=== PATIENT | female | born 1950 | race Caucasian/White ===

== ENCOUNTER 2020-12-20 15:04 | Outpatient (CLI) | payer MEDICARE, OTHER ==
[2020-12-20 16:42] LABS: ALANINE AMINOTRANSFERASE 30 U/L (12-78); ALBUMIN 3.6 g/dL (3.4-5.0); ANION GAP 10 mmol/L (5-15); BASOPHILS % (AUTO) 2 % (0-1); CALCIUM 8.6 mg/dL (8.5-10.1); CHLORIDE 108 mmol/L (98-107); CREATININE 3.96 mg/dL (0.55-1.02); EOSINOPHILS % (AUTO) 4 % (1-7); LYMPHOCYTES % (AUTO) 39 % (22-44); MEAN CORPUSCULAR HEMOGLOBIN 31.4 pg (27.0-34.8); MEAN CORPUSCULAR HGB CONC 33.5 g/dL (32.4-35.8); MEAN PLATELET VOLUME 7.1 fL (7.4-10.4); MONOCYTES % (AUTO) 9 % (2-9); NEUTROPHILS % (AUTO) 47 % (42-75); PLATELET COUNT 283 x10^3/uL (130-400); RED BLOOD COUNT 3.02 x10^6/uL (3.82-5.3); RED CELL DISTRIBUTION WIDTH 14.4 % (9.6-15.2)
[2020-12-20 16:43] LABS: INTERNATIONAL NORMALIZED RATIO 1.02 (0.93-1.1); MD NO; PROTHROMBIN TIME 10.9 Seconds (9.6-11.5)
[2020-12-20 16:44] LABS: ALKALINE PHOSPHATASE 105 U/L (45-117); BILIRUBIN,TOTAL 0.3 mg/dL (0.2-1.0); TOTAL PROTEIN 7.1 g/dL (6.4-8.2)
[2020-12-21] MEDS ORDERED: [UNRECOGNIZED DRUG - CODE] PO (13:38)
[2020-12-21] MEDS ORDERED: SIMV40TA20 PO (13:38)
[2020-12-21] MEDS ORDERED: AMLO-211 PO (13:38)
[2020-12-21] MEDS ORDERED: INSU100V8 SQ (13:38)
[2020-12-21] MEDS ORDERED: SENN8.6T12 PO (13:38)
[2020-12-21] MEDS ORDERED: VITA1TAB67 PO (13:38)
[2020-12-21] MEDS ORDERED: LOSA50TA14 PO (13:38)
[2020-12-21] MEDS ORDERED: GUAN1TAB PO (13:38)
[2020-12-21] MEDS ORDERED: UBID1CAP43 PO (13:38)
[2020-12-21] MEDS ORDERED: EZET10TA70 PO (13:38)
[2020-12-21] MEDS ORDERED: CALC-451 PO (13:38)
[2020-12-21] MEDS ORDERED: L.AC1CAP6 PO (13:38)
[2020-12-21] MEDS ORDERED: ALPR0.5T7 PO (13:38)
[2020-12-21] MEDS ORDERED: NITR0.6T SL (13:38)
[2020-12-21] MEDS ORDERED: CYAN500011 PO (13:38)
[2020-12-21] MEDS ORDERED: MAGN400T36 PO (13:38)
[2020-12-21] MEDS ORDERED: CRAN1CAP12 PO (13:38)
[2020-12-21] MEDS ORDERED: ASPI81TA45 PO (13:38)
[2020-12-21] MEDS ORDERED: SODI650T PO (13:38)
[2020-12-21] MEDS ORDERED: TORS10TA4 PO (13:38)
[2020-12-21] MEDS ORDERED: CYCL5TAB PO (13:38)
[2020-12-21] MEDS ORDERED: GABA-826 PO (13:38)
[2020-12-21] MEDS ORDERED: CALC0.25 PO (13:38)
== END 2020-12-20 23:59 | disposition home or self-care (01) ==
LOC: STAR 15:04
PROVIDERS: ATTEND Surgery
DX: Z01.812 Encounter for preprocedural laboratory examination (principal); Z20.822 Contact with and (suspected) exposure to COVID-19; N18.9 Chronic kidney disease, unspecified; R00.1 Bradycardia, unspecified; I25.2 Old myocardial infarction
CPT/HCPCS: 36415; 80053; 85025; 85610; 85730; 93005; U0003

== ENCOUNTER 2020-12-25 12:53 | Day surgery (SDC) | payer MEDICARE, OTHER ==
[~2020-12-25] VITALS: Ht 147.3 cm; Wt 59.7 kg
[~2020-12-25 12:53] MED LIST: ALPR0.5T7 PO; AMLO-211 PO; ASPI81TA45 PO; CALC-451 PO; CALC0.25 PO; CRAN1CAP12 PO; CYAN500011 PO; CYCL5TAB PO; EZET10TA70 PO; GABA-826 PO; GUAN1TAB PO; INSU100V8 SQ; L.AC1CAP6 PO; LOSA50TA14 PO; MAGN400T36 PO; NITR0.6T SL; SENN8.6T12 PO; SIMV40TA20 PO; SODI650T PO; TORS10TA4 PO; UBID1CAP43 PO; VITA1TAB67 PO; [UNRECOGNIZED DRUG - CODE] PO
[2020-12-25] MEDS ORDERED: LACTATED RINGERS 1,000 ML IV SCH (13:30)
[2020-12-25] MEDS ORDERED: CHLORHEXIDINE 15 ML UDC PO ONE (13:30)
[2020-12-25 13:38] VITALS: BP 155/66
[2020-12-25] MEDS ORDERED: SODIUM CHLORIDE 0.9% 1,000 ML IV SCH (14:00)
[2020-12-25] MEDS ORDERED: BUPIVACAINE/PF 0.25% ONE (14:13)
[2020-12-25] MEDS ORDERED: HEPARIN 1,000 UNITS/ML, 10ML ONE (14:13)
[2020-12-25] MEDS ORDERED: PROTAMINE SULFATE 10 MG/ML, 25ML ONE (14:13)
[2020-12-25] MEDS ORDERED: LIDOCAINE/PF 1%, 30ML ONE (14:13)
[2020-12-25] MEDS ORDERED: PAPAVERINE 30 MG/ML, 2ML ONE (14:13)
[2020-12-25] MEDS ORDERED: SODIUM CHLORIDE 0.9% PF 10ML ONE (14:36)
[2020-12-25] MEDS ORDERED: LIDOCAINE-MPF 2% ,5ML ONE (14:36)
[2020-12-25] MEDS ORDERED: MIDAZOLAM 1 MG/ML, 2ML ONE (14:38)
[2020-12-25] MEDS ORDERED: FENTANYL PF 100 MCG/2ML ONE ×2 (14:38→15:45)
[2020-12-25] MEDS ORDERED: hydrALAzine 20 MG/ML, 1ML IV PRN (15:00)
[2020-12-25] MEDS ORDERED: LABETALOL 5MG/ML, 20ML IV PRN (15:00)
[2020-12-25] MEDS ORDERED: FENTANYL PF 100 MCG/2ML IV PRN (15:00)
[2020-12-25] MEDS ORDERED: OXYcodone 5 MG/5 ML ORAL.SOL UDC PO PRN (15:00)
[2020-12-25] MEDS ORDERED: HYDROmorphone 1 MG/ML, 1ML INJ IVPush PRN (15:00)
[2020-12-25] MEDS ORDERED: ACETAMINOPHEN 325 MG TABLET PO PRN (15:00)
[2020-12-25] MEDS ORDERED: PROMETHAZINE 25 MG/ML, 1ML IVPush PRN (15:00)
[2020-12-25] MEDS ORDERED: ONDANSETRON 2MG/ML, 2ML IVPush PRN (15:00)
[2020-12-25] MEDS ORDERED: EPHEDRINE 50 MG/ML, 1ML IVPush PRN (15:00)
[2020-12-25] MEDS ORDERED: HYDR-2214 PO ×2 (15:25→15:30)
[2020-12-25] MEDS ORDERED: GLYCOPYRROLATE 0.2MG/1ML, 5ML ONE ×2 (15:41→15:55)
[2020-12-25] MEDS ORDERED: BUPIVACAINE 0.25% INFIL ONE (15:42)
[2020-12-25] MEDS ORDERED: HEPARIN 1,000 UNITS/ML, 1ML IV ONE (15:42)
[2020-12-25] MEDS ORDERED: EPHEDRINE 50 MG/ML, 1ML ONE (15:43)
[2020-12-25] MEDS ORDERED: HYDROmorphone 1 MG/ML, 1ML INJ ONE ×2 (15:51→16:04)
[2020-12-25] MEDS ORDERED: PHENYLEPHRINE 10 MG/ML ONE (15:52)
[2020-12-25] MEDS ORDERED: ONDANSETRON 2MG/ML, 2ML ONE (15:55)
[2020-12-25] MEDS ORDERED: CEFAZOLIN 1,000 MG ONE (15:55)
[2020-12-25] MEDS ORDERED: PROPOFOL 10 MG/ML, 20ML ONE (15:55)
== END 2020-12-25 19:10 | disposition home or self-care (01) ==
LOC: OR 12:53
PROVIDERS: ATTEND Surgery
DX: E11.22 Type 2 diabetes mellitus with diabetic chronic kidney disease (principal); I12.0 Hypertensive chronic kidney disease with stage 5 chronic kidney disease or end stage renal disease; N18.6 End stage renal disease; E78.5 Hyperlipidemia, unspecified; I25.10 Atherosclerotic heart disease of native coronary artery without angina pectoris; I25.2 Old myocardial infarction; D66 Hereditary factor VIII deficiency; Z79.4 Long term (current) use of insulin; Z79.82 Long term (current) use of aspirin; Z79.899 Other long term (current) drug therapy; Z87.891 Personal history of nicotine dependence; Z88.0 Allergy status to penicillin; Z88.2 Allergy status to sulfonamides; Z88.5 Allergy status to narcotic agent; Z98.84 Bariatric surgery status; Z98.890 Other specified postprocedural states
CPT/HCPCS: 36832; 82962; 84132; J0690; J1170; J1644; J2250; J2370; J2405; J2704; J2720; J3010; J2440